=== PATIENT | male | born 1940 | race Hispanic/Latino ===

== ENCOUNTER 2019-04-27 12:25 | Emergency (ER) | payer MEDICARE ==
[~2019-04-27] VITALS: Ht 160 cm; Wt 68.0 kg
[~2019-04-27 12:25] MED LIST: AUGMENTIN875TAB PO; TRAMADOL HCL50 MG PO
[2019-04-27] MEDS ORDERED: LISINOPRIL10 MG PO (13:06)
[2019-04-27] MEDS ORDERED: PREDNISOLONE OU (13:08)
[2019-04-27] MEDS ORDERED: [UNRECOGNIZED DRUG - OTHER] OU (13:08)
[2019-04-27 14:09] LABS: INTERNATIONAL NORMALIZED RATIO 1.1 RATIO (0.7-1.3); PROTHROMBIN TIME 11.1 SECONDS (9.0-12.5)
[2019-04-27 14:12] LABS: IMMATURE GRANULOCYTES 0.4 % (0.0-5.0); MEAN CORPUSCULAR HGB 16.7 pG CALC (26.0-32.0); MEAN CORPUSCULAR HGB CONC 25.7 g/L CALC (32.0-36.0); NEUT# 3.57 thou/uL (1.82-7.42); RED BLOOD COUNT 2.7 mill/uL (4.70-6.10); RED CELL DISTRI WIDTH 20.6 % (11.5-15.5)
[2019-04-27 14:13] LABS: ALKALINE PHOSPHATASE 53 u/l (38-126); ANION GAP 14 (6-22 (CALC)); BUN 19 mg/dL (8-23); BUN/CREATININE RATIO 26 (12-20 (CALC)); CARBON DIOXIDE 27 mmol/l (22-30); CHLORIDE 107 mmol/l (95-108); CREATININE 0.7 mg/dL (0.7-1.3); GFR > 60 ML/MIN (>=60 (CALC)); GFR FOR AFR.AMER. > 60 ML/MIN (>=60 (CALC)); POTASSIUM 3.9 mmol/l (3.5-5.1); SGOT/AST 22 u/l (19-48); SODIUM 144 mmol/l (137-146)
[2019-04-27 14:26] LABS: HEMATOCRIT 17.5 % (39.0-50.0); HEMOGLOBIN 4.5 g/dl (14.0-18.0); MEAN CELL VOLUME 64.8 fL CALC (80.0-100.0)
[2019-04-27 14:30] LABS: ALBUMIN 4.4 g/dL (3.2-5.0); BILIRUBIN, TOTAL 0.4 mg/dL (0.0-1.4); TOTAL PROTEIN 7.9 g/dL (6.3-8.2)
[2019-04-27 17:19] LABS: MYOGLOBIN 24 ng/mL (0 - 121)
[2019-04-27 18:20] VITALS: BP 134/63
[2019-04-27 18:40] VITALS: BP 151/67
[2019-04-27 18:56] VITALS: BP 151/67
== END 2019-04-27 18:56 | disposition short-term general hospital (02) ==
LOC: ED 12:25 → EDBD 12:25 → ED 13:41
PROVIDERS: Emergency Medicine
PROC: 30233N1 Transfusion of Nonautologous Red Blood Cells into Peripheral Vein, Percutaneous Approach (ICD-10-PCS; principal; 2019-04-27)
DX: D64.9 Anemia, unspecified (principal); I10 Essential (primary) hypertension
CPT/HCPCS: P9016

== ENCOUNTER 2020-02-05 11:49 | Emergency (ER) | payer MEDICARE, MEDICAID ==
[~2020-02-05] VITALS: Ht 160 cm; Wt 77.2 kg
[~2020-02-05 11:49] MED LIST changes: +LISINOPRIL10 MG PO; +PREDNISOLONE OU; +[UNRECOGNIZED DRUG - OTHER] OU
[2020-02-05] MEDS ORDERED: BACTRIM DS1 TAB PO (12:35)
[2020-02-05 13:10] VITALS: BP 141/67
== END 2020-02-05 13:00 | disposition home or self-care (01) ==
LOC: ED 11:49
PROC: 0H96XZZ Drainage of Back Skin, External Approach (ICD-10-PCS; principal; 2020-02-05)
DX: L02.212 Cutaneous abscess of back [any part, except buttock and flank] (principal); I10 Essential (primary) hypertension; F17.200 Nicotine dependence, unspecified, uncomplicated

== ENCOUNTER 2020-02-08 11:14 | Emergency (ER) | payer MEDICARE, MEDICAID ==
[~2020-02-08] VITALS: Ht 160 cm; Wt 75.0 kg
[~2020-02-08 11:14] MED LIST changes: +BACTRIM DS1 TAB PO
[2020-02-08 11:50] VITALS: BP 182/90
== END 2020-02-08 11:50 | disposition home or self-care (01) ==
LOC: ED 11:14
DX: Z48.01 Encounter for change or removal of surgical wound dressing (principal); I10 Essential (primary) hypertension; F17.200 Nicotine dependence, unspecified, uncomplicated; T36.96XA Underdosing of unspecified systemic antibiotic, initial encounter; Z91.128 Patient's intentional underdosing of medication regimen for other reason

== ENCOUNTER 2020-04-29 10:06 | Emergency (ER) | payer MEDICARE, MEDICAID ==
[~2020-04-29] VITALS: Ht 160 cm; Wt 71.5 kg
[2020-04-29 10:54] LABS: IMMATURE GRANULOCYTES 0.2 % (0.0-5.0); MEAN CORPUSCULAR HGB 23.6 pG CALC (26.0-32.0); MEAN CORPUSCULAR HGB CONC 29.9 g/dL CAL (32.0-36.0); NEUT# 3.45 thou/uL (1.82-7.42); RED BLOOD COUNT 3.39 mill/uL (4.70-6.10); RED CELL DISTRI WIDTH 14.3 % (11.5-15.5)
[2020-04-29 11:09] LABS: ALBUMIN 4.4 g/dL (3.2-5.0); ALKALINE PHOSPHATASE 62 u/l (38-126); ANION GAP 13 (6-22 (CALC)); BILIRUBIN, TOTAL 0.5 mg/dL (0.0-1.4); BUN 15 mg/dL (8-23); BUN/CREATININE RATIO 19 (12-20 (CALC)); CARBON DIOXIDE 28 mmol/l (22-30); CHLORIDE 104 mmol/l (95-108); CREATININE 0.8 mg/dL (0.7-1.3); ETHYL ALCOHOL 0 mg/dl (0-30); GFR > 60 ML/MIN (>=60 (CALC)); GFR FOR AFR.AMER. > 60 ML/MIN (>=60 (CALC)); LIPASE 55 u/l (23-300); SGOT/AST 32 u/l (19-48); SODIUM 141 mmol/l (137-146); TOTAL PROTEIN 7.8 g/dL (6.3-8.2)
[2020-04-29 11:17] LABS: HEMATOCRIT 26.8 % (39.0-50.0); MEAN CELL VOLUME 79.1 fL CALC (80.0-100.0)
[2020-04-29 11:26] LABS: ACT PARTIAL THROMBO TIME 24.7 SECONDS (20.0-32.5); INTERNATIONAL NORMALIZED RATIO 1.1 RATIO (0.7-1.3); PROTHROMBIN TIME 10.5 SECONDS (9.0-12.5)
[2020-04-29] MEDS ORDERED: KEFLEX500 M1 PO (12:43)
[2020-04-29 13:50] VITALS: BP 168/74
== END 2020-04-29 13:50 | disposition home or self-care (01) ==
LOC: ED 10:06
DX: R60.0 Localized edema (principal); R01.1 Cardiac murmur, unspecified; L53.9 Erythematous condition, unspecified; I10 Essential (primary) hypertension; F10.10 Alcohol abuse, uncomplicated; F17.200 Nicotine dependence, unspecified, uncomplicated; M79.89 Other specified soft tissue disorders; M79.605 Pain in left leg; M79.604 Pain in right leg

== ENCOUNTER 2020-11-29 09:54 | Emergency (ER) | payer MEDICARE, MEDICAID ==
[~2020-11-29] VITALS: Ht 160 cm; Wt 79.5 kg
[~2020-11-29 09:54] MED LIST changes: +KEFLEX500 M1 PO
[2020-11-29 11:00] LABS: URINE BILIRUBIN - DIPSTICK NEGATIVE (NEGATIVE); URINE BLOOD DIPSTICK TRACE-INTACT (NEGATIVE); URINE COLOR YELLOW; URINE GLUCOSE - DIPSTICK NEGATIVE (NEGATIVE); URINE KETONE NEGATIVE (NEGATIVE); URINE LEUK ESTERASE NEGATIVE (NEGATIVE); URINE PROTEIN - DIPSTICK NEGATIVE (NEG-TRACE)
[2020-11-29 11:01] LABS: URINE NITRITE - DIPSTICK NEGATIVE (Negative)
[2020-11-29 11:12] LABS: HEMATOCRIT 24.3 % (39.0-50.0); IMMATURE GRANULOCYTES 0.2 % (0.0-5.0); MEAN CORPUSCULAR HGB 17.8 pG CALC (26.0-32.0); MEAN CORPUSCULAR HGB CONC 26.7 g/dL CAL (32.0-36.0); NEUT# 4.87 thou/uL (1.82-7.42); RED BLOOD COUNT 3.65 mill/uL (4.70-6.10); RED CELL DISTRI WIDTH 20.6 % (11.5-15.5)
[2020-11-29 11:13] LABS: HEMOGLOBIN 6.5 g/dl (14.0-18.0); MEAN CELL VOLUME 66.6 fL CALC (80.0-100.0)
[2020-11-29 11:16] LABS: ACT PARTIAL THROMBO TIME 24.3 SECONDS (20.0-32.5); INTERNATIONAL NORMALIZED RATIO 1.2 RATIO (0.7-1.3); PROTHROMBIN TIME 11.9 SECONDS (9.0-12.5)
[2020-11-29 11:17] LABS: ALBUMIN 3.7 g/dL (3.2-5.0); ALKALINE PHOSPHATASE 50 u/l (38-126); BILIRUBIN, TOTAL 0.5 mg/dL (0.0-1.4); BUN 14 mg/dL (8-23); BUN/CREATININE RATIO 21 (12-20 (CALC)); CARBON DIOXIDE 32 mmol/l (22-30); CHLORIDE 102 mmol/l (95-108); CREATININE 0.7 mg/dL (0.7-1.3); ETHYL ALCOHOL 0 mg/dl (0-30); GFR > 60 ML/MIN (>=60 (CALC)); GFR FOR AFR.AMER. > 60 ML/MIN (>=60 (CALC)); LIPASE 58 u/l (23-300); SGOT/AST 30 u/l (19-48); SODIUM 143 mmol/l (137-146); TOTAL PROTEIN 7.3 g/dL (6.3-8.2)
[2020-11-29 11:21] LABS: ANION GAP 12 (6-22 (CALC)); POTASSIUM 2.8 mmol/l (3.5-5.1)
[2020-11-29 13:35] VITALS: BP 210/106
[2020-11-29 13:52] VITALS: BP 192/91
[2020-11-29 14:17] VITALS: BP 182/86
[2020-11-29 15:22] VITALS: BP 182/86
== END 2020-11-29 15:27 | disposition short-term general hospital (02) ==
LOC: ED 09:54
PROC: 30233N1 Transfusion of Nonautologous Red Blood Cells into Peripheral Vein, Percutaneous Approach (ICD-10-PCS; principal; 2020-11-29)
DX: D64.9 Anemia, unspecified (principal); J18.9 Pneumonia, unspecified organism; K92.2 Gastrointestinal hemorrhage, unspecified; R60.0 Localized edema; F10.10 Alcohol abuse, uncomplicated; I10 Essential (primary) hypertension; F17.200 Nicotine dependence, unspecified, uncomplicated; Z20.822 Contact with and (suspected) exposure to COVID-19
CPT/HCPCS: P9016; Q9967